=== PATIENT | female | born 1985 | race Caucasian/White ===

== ENCOUNTER 2016-06-07 07:57 | Inpatient (IN) | payer OTHER ==
[~2016-06-07] VITALS: Wt 68.6 kg
[2016-06-07 11:19] LABS: EOSINOPHIL (%) 0.3 % (0-5); HEMATOCRIT 38.7 % (36.0-46.0); IMMATURE GRANULOCYTE (%) 0.2 % (0.0-0.7); INSTRUMENT ABS NEUTROPHIL CT 4.5 K/uL; LYMPHOCYTE COUNT 1.5 K/uL (1.0-2.8); MCH 29.9 PG (29.0-34.0); MCHC 33.6 G/DL (30.0-36.0); MEAN PLAT.VOLUME 10.6 uM^3 (9.5-12.4); MONOCYTE (%) 6.3 % (3-12); MONOCYTE COUNT 0.4 K/uL (0-0.8); NEUTROPHIL (%) 69.3 % (45-76); NEUTROPHIL COUNT 4.5 K/uL (1.8-6.4); PLATELET COUNT 237 K/uL (156-360); RBC DIS.WIDTH-CV 14.3 % (11.8-14.6); RBC DIS.WIDTH-SD 46.3 % (39-53); RED BLOOD COUNT 4.35 M/uL (3.80-5.20); WHITE BLOOD COUNT 6.5 K/uL (4.1-10.2)
[2016-06-07 11:27] LABS: INTER. NORMALIZED RATIO 1.1; PROTHROMBIN TIME 11.7 (9.2-11.2)
[2016-06-07 11:30] LABS: CHLORIDE 114 mEq/L (99-109); POTASSIUM 4.4 mEq/L (3.7-5.4); SODIUM 143 mEq/L (136-147)
[2016-06-07 11:32] LABS: GLUCOSE 106 mg/dL (70-99)
[2016-06-07 11:33] LABS: ANION GAP 11 MEQ/L (2-14)
[2016-06-07 11:34] LABS: TOTAL BILIRUBIN 0.9 mg/dL (0.0-1.0)
[2016-06-07 11:35] LABS: ALKALINE PHOSPHATASE 41 IU/L (3-129)
[2016-06-07 11:36] LABS: GFR ESTIMATE (CALCULATED) > 59 mL/min/
[2016-06-07 11:37] LABS: UREA NITROGEN (BUN) 19 mg/dL (9-23)
[2016-06-07 11:39] LABS: LIPASE 15 U/L (1.0-51.0)
[2016-06-07 11:47] LABS: QUANTITATIVE HCG < 4.0 MIU/ML
[2016-06-07] MEDS ORDERED: L-ARGININE500 M1 PO (13:15)
[2016-06-07] MEDS ORDERED: L-CARNITINE500 MG PO (13:15)
[2016-06-07] MEDS ORDERED: IBUPROFEN400 MG PO (13:16)
[2016-06-07] MEDS ORDERED: [UNRECOGNIZED DRUG - OTHER] PO (13:56)
[2016-06-07 17:59] VITALS: BP 105/71
[2016-06-07 22:51] VITALS: BP 120/85
[2016-06-08 02:40] VITALS: BP 133/90
[2016-06-08 07:54] VITALS: BP 113/69
[2016-06-08 12:31] LABS: HEMATOCRIT 35.8 % (36.0-46.0); MCH 30.1 PG (29.0-34.0); MCHC 33.8 G/DL (30.0-36.0); MCV 89.1 FL (83-99); MEAN PLAT.VOLUME 10.9 uM^3 (9.5-12.4); PLATELET COUNT 223 K/uL (156-360); RBC DIS.WIDTH-CV 14.3 % (11.8-14.6); RBC DIS.WIDTH-SD 46.6 % (39-53); RED BLOOD COUNT 4.02 M/uL (3.80-5.20)
[2016-06-08 12:32] LABS: WHITE BLOOD COUNT 3.8 K/uL (4.1-10.2)
[2016-06-08 13:03] LABS: ANION GAP 9 MEQ/L (2-14); CHLORIDE 115 MEQ/L (99-109); GFR ESTIMATE (CALCULATED) > 59 mL/min/; GLUCOSE 106 mg/dL (70-99); POTASSIUM 3.7 MEQ/L (3.7-5.4); SAMPLE HEMOLYSIS CHECK 0; SAMPLE ICTERIC CHECK 0; SAMPLE LIPEMIA CHECK 0; SODIUM 142 MEQ/L (136-147); UREA NITROGEN (BUN) 14 mg/dL (9-23)
[2016-06-08 15:17] LABS: ADD MIUA? YES; BILIRUBIN NEGATIVE; BLOOD NEGATIVE; COLOR YELLOW ((YELLOW)); GLUCOSE (STRIP) NEGATIVE; KETONES 20; LEUKOCYTES TRACE; NITRITE NEGATIVE; PROTEIN (STRIP) NEGATIVE; SPECIFIC GRAVITY 1.015 (1.000-1.030); UROBILINOGEN 0.2 MG/DL (0.2-1.0)
[2016-06-08 15:28] LABS: BACTERIA RARE /HPF; EPITHELIAL CELLS 3+ /HPF; MUCUS TRACE /LPF; RED BLOOD CELLS 0-5 /HPF (0-5); UCUL ADDED? NO
[2016-06-08 16:13] VITALS: BP 119/78
[2016-06-08 22:50] VITALS: BP 141/56
[2016-06-09 08:39] LABS: HEMATOCRIT 33.4 % (36.0-46.0); MCH 29.8 PG (29.0-34.0); MCHC 33.2 G/DL (30.0-36.0); MCV 89.5 FL (83-99); MEAN PLAT.VOLUME 10.7 uM^3 (9.5-12.4); PLATELET COUNT 197 K/uL (156-360); RBC DIS.WIDTH-CV 14.5 % (11.8-14.6); RBC DIS.WIDTH-SD 47.5 % (39-53); RED BLOOD COUNT 3.73 M/uL (3.80-5.20)
[2016-06-09 09:12] LABS: ALKALINE PHOSPHATASE 31 IU/L (3-129); ANION GAP 9 MEQ/L (2-14); CHLORIDE 117 MEQ/L (99-109); GFR ESTIMATE (CALCULATED) > 59 mL/min/; GLUCOSE 95 mg/dL (70-99); POTASSIUM 3.9 MEQ/L (3.7-5.4); SAMPLE HEMOLYSIS CHECK 0; SAMPLE ICTERIC CHECK 0; SAMPLE LIPEMIA CHECK 0; SODIUM 144 MEQ/L (136-147); TOTAL BILIRUBIN 0.9 MG/DL (0.0-1.0); UREA NITROGEN (BUN) 14 mg/dL (9-23)
[2016-06-09 09:55] LABS: EOSINOPHIL COUNT 0.1 K/uL (0-0.3); HEMATOLOGY COMMENT 1 SMEAR COMPATIBLE; IMMATURE GRANULOCYTE (%) 0.3 % (0.0-0.7); INSTRUMENT ABS NEUTROPHIL CT 1.5 K/uL; MONOCYTE (%) 8.1 % (3-12); MONOCYTE COUNT 0.3 K/uL (0-0.8); NEUTROPHIL (%) 38.4 % (45-76); NEUTROPHIL COUNT 1.5 K/uL (1.8-6.4)
== END 2016-06-09 13:40 | disposition left against medical advice (07) | DRG 642 ==
LOC: EME 07:57 → EDBD 07:57 → EDOF 13:08 → 5EAST 17:48
PROVIDERS: Emergency Medicine; Hospitalist; Internal Medicine; Internal Medicine Endocrinology, Diabetes & Metabolism
DX: E72.4 Disorders of ornithine metabolism (principal); G93.40 Encephalopathy, unspecified; E87.2 Acidosis; F05 Delirium due to known physiological condition; R45.1 Restlessness and agitation; R47.81 Slurred speech; J34.2 Deviated nasal septum; K59.00 Constipation, unspecified; Z91.14 Patient's other noncompliance with medication regimen; R14.0 Abdominal distension (gaseous); Z91.19 Patient's noncompliance with other medical treatment and regimen; Z82.0 Family history of epilepsy and other diseases of the nervous system
CPT/HCPCS: 74000; 80048; 80053; 81003; 82139 90; 82140; 83605; 83690; 84702; 85025; 85027; 85610; 99281; 99284; J2060; J7030